=== PATIENT | male | born 1990 | race Caucasian/White ===

== ENCOUNTER 2016-03-31 22:51 | Emergency (ER) | payer OTHER ==
[2016-03-31] MEDS ORDERED: RX INFO: IV CONTRAST WAS GIVEN 1 EACH MISC MISCELLANE PRN (23:04)
[2016-03-31] MEDS ORDERED: SODIUM CHLORIDE 0.9% 1,000 ML IV STA (23:04)
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
[2016-03-31 23:47] LABS: Basophils % (A) 0 %; CH 31.2; Eosinophils # (A) 0.1 k/uL (0-0.7); Eosinophils % (A) 1 %; HCT 45.7 % (39.0-53.0); HDW 2.79; HGB 15.6 gm/dL (13.0-17.5); Luc % (Auto) 1; Lymphocytes % (A) 20 %; MCH 29.9 pg (25.0-35.0); MCHC 34.3 g/dL (31.0-37.0); MCV 87.2 fL (80.0-100.0); Mean Platelet Volume 7.7; Monocytes # (A) 0.6 k/uL (0-1.0); Monocytes % (A) 6 %; Neutrophils # (A) 7.4 k/uL (1.3-7.7); Neutrophils % (A) 73 %; RBC 5.24 m/uL (4.30-5.90); RDW 12.9 % (11.5-15.5); WBC 10.2 k/uL (3.8-10.6); WBC (Perox) 9.95
[2016-03-31 23:58] LABS: ALT 46 U/L (21-72); AST 25 U/L (17-59); Alkaline Phosphatase 66 U/L (38-126); Anion Gap 15 mmol/L; Blood Urea Nitrogen 13 mg/dL (9-20); Calcium 9.8 mg/dL (8.4-10.2); Carbon Dioxide 23 mmol/L (22-30); Chloride 102 mmol/L (98-107); Glucose 289 mg/dL (74-99); Non-African American GFR(MDRD) >60 (>60 ml/min/1.73 sqM); Potassium 4.1 mmol/L (3.5-5.1); Sodium 140 mmol/L (137-145); Total Bilirubin 0.9 mg/dL (0.2-1.3); Total Protein 7.6 g/dL (6.3-8.2)
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
--- NOTE | 2016-04-01 00:46 | XR ---
EXAMINATION TYPE: XR ankle complete LT DATE OF EXAM: 04/01/2016 12:21 AM COMPARISON: NONE HISTORY: Ankle pain TECHNIQUE: 3 views FINDINGS: I see no fracture nor dislocation. Joint spaces are normal. Soft tissues appear normal. IMPRESSION: Normal left ankle.
[2016-04-01 01:00] VITALS: RESP 16
[2016-04-01 01:08] VITALS: BP 138/69; PULSE 78; TEMP 97.9
== END 2016-04-01 01:09 | disposition home or self-care (01) ==
LOC: EC 22:51
DX: S93.402A Sprain of unspecified ligament of left ankle, initial encounter (principal); S46.912A Strain of unspecified muscle, fascia and tendon at shoulder and upper arm level, left arm, initial encounter; S06.0X0A Concussion without loss of consciousness, initial encounter; E11.9 Type 2 diabetes mellitus without complications; K76.0 Fatty (change of) liver, not elsewhere classified; F17.200 Nicotine dependence, unspecified, uncomplicated; V89.2XXA Person injured in unspecified motor-vehicle accident, traffic, initial encounter; Z79.84 Long term (current) use of oral hypoglycemic drugs
CPT/HCPCS: 99284; 96360; 36415; 80053; 85025; 73030; 73610; 72125; 70450; 71260; 74177; Q9967

== ENCOUNTER 2016-07-29 17:13 | Emergency (ER) | payer OTHER ==
[2016-07-29] MEDS ORDERED: LORazepam 1 MG TAB PO STA (17:53)
[2016-07-29] MEDS ORDERED: MECLIZINE 12.5 MG TAB PO STA (17:53)
--- NOTE | 2016-07-29 17:59 | ED ---
General Adult HPI - General Chief complaint: Dizziness Stated complaint: dizziness, hard time walking and sitting Time Seen by Provider: 07/29/16 17:33 Source: patient, family, RN notes reviewed, old records reviewed Mode of arrival: wheelchair Limitations: no limitations - History of Present Illness Initial comments: Chief complaint history of present illness a 26-year-old male here with symptoms of benign positional vertigo. It started approximately 90 minutes ago. She has had a runny nose and ALLERGY type symptoms for 2 weeks. No fever. No injuries. Turning his head left and right increases dizziness but stops after while walking causes him to be dizzy she does not fall and has no deficits neurologically. - Related Data Home Medications Medication Instructions Recorded Confirmed Albuterol Inhaler [Ventolin Hfa 2 puff INHALATION RT-Q6H PRN 07/20/14 07/29/16 Inhaler] Calcium Carbonate [Tums] 500 mg PO QID PRN 09/07/15 07/29/16 glipiZIDE [Glucotrol] 5 mg PO AC-BID 09/07/15 07/29/16 metFORMIN HCL [Glucophage] 1,000 mg PO AC-BID 09/07/15 07/29/16 Previous Rx's Medication Instructions Recorded Meclizine [Antivert] 25 mg PO TID #30 tab 07/29/16 Allergies Allergy/AdvReac Type Severity Reaction Status Date / Time No Known Allergies Allergy Verified 07/29/16 17:22 Review of Systems ROS Statement: Those systems with pertinent positive or pertinent negative responses have been documented in the HPI. review of systems. No headache, dizziness with head movement and walking. Mild nausea no vomiting. No change in appetite. No pain anywhere. All systems are reviewed.Past medical processing significant for asthma he does not smoke cigarettes but he smokes the electronic vaporization. Nex-[id number] diabetes mellitus, GERD, hypertension and does not take medications. He's had 5 sets of ear tubes. Family history vertigo. ALLERGIES none. ROS Other: All systems not noted in ROS Statement are negative. Past Medical History Past Medical History: Asthma, Diabetes Mellitus, GERD/Reflux, Hypertension History of Any Multi-Drug Resistant Organisms: None Reported Additional Past Surgical History / Comment(s): ear surgery 5 times Past Psychological History: Anxiety, Depression Smoking Status: Current every day smoker Past Alcohol Use History: None Reported Past Drug Use History: None Reported General Exam - General Exam Comments Initial Comments: General: The patient is awake and alert, complains of dizziness with head movement or standing up quickly. Vital signs show temperature 97.2 pulse 104 respiratory rate 20 pulse ox 90% room air blood pressure 130/83 Eye: Pupils are equal, round and reactive to light, extra-ocular movements are intact ; there is normal conjunctiva bilaterally. No signs of icterus. Ears, nose, mouth and throat: There are moist mucous membranes and no oral lesions. Neck: The neck is supple, there is no tenderness . Cardiovascular: There is a regular rate and rhythm. No murmur, rub or gallop is appreciated. Respiratory: Lungs are clear to auscultation, respirations are non-labored, breath sounds are equal. No wheezes, stridor, rales, or rhonchi. Gastrointestinal: Soft, non-distended, non-tender abdomen without masses or organomegaly noted. There is no rebound or guarding present. No CVA tenderness. Bowel sounds are unremarkable. Back: no complaint of back pain. No complaint of any rash. Musculoskeletal: Normal ROM, no tenderness, There is no pedal edema. There is no calf tenderness or swelling. Sensation intact. Pulses equal bilaterally 2+. Neurological: CN II-XII intact, There are no obvious motor or sensory deficits. Coordination appears grossly intact. Speech is normal.no focal or lateralizing findings Skin: Skin is warm and dry and no rashes or lesions are noted. Limitations: no limitations Course Vital Signs 07/29/16 17:19 Temperature 97.2 F L Pulse Rate 104 H Respiratory 20 Rate Blood Pressure 130/83 O2 Sat by Pulse 98 Oximetry Medical Decision Making - Medical Decision Making Past receiving Ativan and meclizine patient reports she's feeling better. The plan the patient be discharged home to care of family. Advised to take meclizine 25 mg 3 times daily for his dizziness, increase his fluid intake. Continue with his Claritin as needed nasal drops or sprays as needed. And follow-up with his family physician or return emergency room as needed Disposition Clinical Impression: Benign positional vertigo Disposition: HOME SELF-CARE Condition: Stable Instructions: Dizziness (ED), Vertigo (ED) Additional Instructions: Change positions slowly. Stay hydrated. Take medications as directed. Use nasal spray as needed. Prescriptions: Meclizine [Antivert] 25 mg PO TID #30 tab Referrals: Kat Butler MD [Primary Care Provider] - 1-2 days Time of Disposition: 18:26
[2016-07-29 18:42] VITALS: BP 120/74; PULSE 89; RESP 18; TEMP 98.5
== END 2016-07-29 18:40 | disposition home or self-care (01) ==
LOC: EC 17:13
DX: H81.13 Benign paroxysmal vertigo, bilateral (principal); E11.9 Type 2 diabetes mellitus without complications; F17.200 Nicotine dependence, unspecified, uncomplicated; Z79.84 Long term (current) use of oral hypoglycemic drugs
CPT/HCPCS: 99284

== ENCOUNTER 2016-11-04 09:11 | Emergency (ER) | payer OTHER ==
[2016-11-04 09:21] VITALS: RESP 18
--- NOTE | 2016-11-04 09:38 | ED ---
General Adult HPI - General Chief complaint: Extremity Injury, Lower Stated complaint: LEFT KNEE LUMP/PAIN, EAR PAIN Time Seen by Provider: 11/04/16 09:24 Source: patient, RN notes reviewed Mode of arrival: ambulatory Limitations: no limitations - History of Present Illness Initial comments: Patient 26-year-old male who presents emergency room today with multiple complaints. Patient does admit that he's had some popping and seizures bilaterally. He admits that he does have seasonal ALLERGIES. He does take Zyrtec. He denies any drainage discharge. He denies any other symptoms. Patient also admits that he has had some pain to the left knee. He states that 4 months ago he fell down some steps. He states has been locking up at times giving out on him. He denies any other complaints or associated symptoms. He states that he could no longer take the pain was not getting better so he thought he should have it checked. Patient denies any recent fever, chills, shortness of breath, chest pain, back pain, abdominal pain, nausea or vomiting, numbness or tingling, dysuria or hematuria, constipation or diarrhea, headaches or visual changes, or any other complaints. - Related Data Home Medications Medication Instructions Recorded Confirmed Albuterol Inhaler [Ventolin Hfa 2 puff INHALATION RT-Q6H PRN 07/20/14 07/29/16 Inhaler] Calcium Carbonate [Tums] 500 mg PO QID PRN 09/07/15 07/29/16 glipiZIDE [Glucotrol] 5 mg PO AC-BID 09/07/15 07/29/16 metFORMIN HCL [Glucophage] 1,000 mg PO AC-BID 09/07/15 07/29/16 Previous Rx's Medication Instructions Recorded Meclizine [Antivert] 25 mg PO TID #30 tab 07/29/16 Ibuprofen [Motrin] 600 mg PO Q6HR PRN #20 day 11/04/16 Allergies Allergy/AdvReac Type Severity Reaction Status Date / Time No Known Allergies Allergy Verified 11/04/16 09:16 Review of Systems ROS Statement: Those systems with pertinent positive or pertinent negative responses have been documented in the HPI. ROS Other: All systems not noted in ROS Statement are negative. Past Medical History Past Medical History: Asthma, Diabetes Mellitus, GERD/Reflux, Hypertension History of Any Multi-Drug Resistant Organisms: None Reported Additional Past Surgical History / Comment(s): ear surgery 5 times Past Psychological History: Anxiety, Depression Smoking Status: Current every day smoker Past Alcohol Use History: None Reported Past Drug Use History: None Reported General Exam - General Exam Comments Initial Comments: General: The patient is awake and alert, in no distress, and does not appear acutely ill. Eye: Pupils are equal, round and reactive to light, extra-ocular movements are intact. No nystagmus. There is normal conjunctiva bilaterally. No signs of icterus. Ears, nose, mouth and throat: There are moist mucous membranes and no oral lesions. TMs clear bilaterally. Neck: The neck is supple, there is no tenderness or JVD. Cardiovascular: There is a regular rate and rhythm. No murmur, rub or gallop is appreciated. Respiratory: Lungs are clear to auscultation, respirations are non-labored, breath sounds are equal. No wheezes, stridor, rales, or rhonchi. Musculoskeletal: Normal appearance of the left knee no obvious deformity. Shows good range of motion all areas. Patient does have some tenderness over the anterior and lateral aspect of the left knee. Negative valgus and varus stress. Negative Thiago's. Strength 5/5. Sensation intact. Pulses equal bilaterally 2+. Neurological: A&O x 3. CN II-XII intact, There are no obvious motor or sensory deficits. Coordination appears grossly intact. Speech is normal. Skin: Skin is warm and dry and no rashes or lesions are noted. Psychiatric: Cooperative, appropriate mood & affect, normal judgment. Limitations: no limitations Course Vital Signs 11/04/16 09:16 Temperature 97.3 F L Pulse Rate 106 H Respiratory 18 Rate Blood Pressure 153/96 O2 Sat by Pulse 99 Oximetry Medical Decision Making - Medical Decision Making Patient's x-rays negative for any acute fracture dislocation. Patient was advised to follow-up with orthopedics for further evaluation. Will be given knee immobilizer as he states that he has been giving out. Patient will also be given a prescription for crutches to use with weightbearing as tolerated Disposition Clinical Impression: Knee injury Disposition: HOME SELF-CARE Condition: Good Instructions: Knee Pain (ED) Additional Instructions: Please use knee immobilizer up and moving around with crutches with weightbearing as tolerated. Please do not sleep at the knee immobilizer on. Please follow-up with the orthopedic doctor over the next 2 days. Return for any other concerns. Prescriptions: Ibuprofen [Motrin] 600 mg PO Q6HR PRN #20 day PRN Reason: Pain Referrals: Kat Butler MD [Primary Care Provider] - 1-2 days Time of Disposition: 10:19
--- NOTE | 2016-11-04 10:07 | XR ---
EXAMINATION TYPE: XR knee complete LT DATE OF EXAM: 11/04/2016 CLINICAL HISTORY: Pain after fall injury. TECHNIQUE: Three views of the right knee are obtained. COMPARISON: None. FINDINGS: There is no acute fracture/dislocation evident in right knee. The tri-compartment joint s paces appear within normal limits. The overlying soft tissue appears unremarkable. IMPRESSION: There is no acute fracture or dislocation in the right knee.
[2016-11-04 10:47] VITALS: BP 130/80; PULSE 78; TEMP 97
== END 2016-11-04 10:46 | disposition home or self-care (01) ==
LOC: EC 09:11
DX: S89.92XD Unspecified injury of left lower leg, subsequent encounter (principal); H93.8X3 Other specified disorders of ear, bilateral; E11.9 Type 2 diabetes mellitus without complications; F17.200 Nicotine dependence, unspecified, uncomplicated; Z79.84 Long term (current) use of oral hypoglycemic drugs; Z98.890 Other specified postprocedural states; W10.9XXD Fall (on) (from) unspecified stairs and steps, subsequent encounter
CPT/HCPCS: 73562; 99283; L1830

== ENCOUNTER 2019-09-15 12:15 | Emergency (ER) | payer BC, OTHER ==
[2019-09-15 12:27] VITALS: TEMP 98.1
--- NOTE | 2019-09-15 13:03 | ED ---
General Adult HPI - General Chief complaint: Chest Pain Stated complaint: Chest pain Time Seen by Provider: 09/15/19 12:46 Source: patient, RN notes reviewed, old records reviewed Mode of arrival: ambulatory Limitations: no limitations - History of Present Illness Initial comments: 29-year-old male history of diabetes, current smoker presenting for evaluation of left-sided chest pain with pain radiating to the left arm. He has had intermittent chest pain over the past one week this morning approximately one hour prior to arrival this pain became more severe and he presented to the emergency department with concerns this could be related to his heart. He states the pain is worse with certain positions and worse with movement. He denies associated vomiting or diaphoresis. He himself has no known history of coronary artery disease. He does have a strong family history of coronary artery disease. - Related Data Home Medications Medication Instructions Recorded Confirmed Calcium Carbonate [Tums] 1,000 mg PO QID PRN 09/07/15 09/15/19 Albuterol Sulfate [Albuterol 1 - 2 puff PO RT-Q4H PRN 09/15/19 09/15/19 Sulfate Hfa] Cetirizine HCl [Zyrtec] 10 mg PO DAILY PRN 09/15/19 09/15/19 Ergocalciferol [Vitamin D2] 50,000 unit PO MO 09/15/19 09/15/19 Fenofibrate Nanocrystallized 145 mg PO HS 09/15/19 09/15/19 [Fenofibrate] Losartan [Cozaar] 25 mg PO HS 09/15/19 09/15/19 Pioglitazone [Actos] 15 mg PO PC-LUNCH 09/15/19 09/15/19 glipiZIDE [Glucotrol] 10 mg PO AC-BID 09/15/19 09/15/19 metFORMIN HCL [metFORMIN HCL ER] 750 mg PO AC-SUPPER 09/15/19 09/15/19 Allergies Allergy/AdvReac Type Severity Reaction Status Date / Time acetaminophen [From Tylenol] AdvReac Vomiting Verified 09/15/19 14:20 Review of Systems ROS Statement: Those systems with pertinent positive or pertinent negative responses have been documented in the HPI. ROS Other: All systems not noted in ROS Statement are negative. Past Medical History Past Medical History: Asthma, Diabetes Mellitus, GERD/Reflux, Hypertension History of Any Multi-Drug Resistant Organisms: None Reported Additional Past Surgical History / Comment(s): ear surgery 5 times Past Psychological History: Anxiety, Depression Smoking Status: Vaper Past Alcohol Use History: None Reported Past Drug Use History: None Reported General Exam Limitations: no limitations General appearance: alert, in no apparent distress Head exam: Present: atraumatic, normocephalic Eye exam: Present: normal appearance, PERRL ENT exam: Present: normal exam Neck exam: Present: normal inspection. Absent: tenderness, meningismus Respiratory exam: Present: normal lung sounds bilaterally. Absent: respiratory distress, wheezes Cardiovascular Exam: Present: regular rate, normal rhythm GI/Abdominal exam: Present: soft. Absent: distended, tenderness, guarding Extremities exam: Present: normal inspection, normal capillary refill. Absent: pedal edema Neurological exam: Present: alert, oriented X3, CN II-XII intact. Absent: motor sensory deficit Psychiatric exam: Present: normal affect, normal mood Skin exam: Present: warm, dry, intact. Absent: cyanosis, diaphoretic Course Vital Signs 09/15/19 09/15/19 09/15/19 12:21 13:11 13:30 Temperature 98.1 F Pulse Rate 94 83 86 Respiratory 18 18 16 Rate Blood Pressure 126/89 130/98 O2 Sat by Pulse 98 Oximetry 09/15/19 09/15/19 09/15/19 14:00 14:30 14:45 Temperature Pulse Rate 77 75 81 Respiratory 14 16 18 Rate Blood Pressure 134/93 125/90 135/87 O2 Sat by Pulse 98 98 99 Oximetry 09/15/19 09/15/19 15:00 16:04 Temperature Pulse Rate 75 61 Respiratory 18 16 Rate Blood Pressure 135/87 133/71 O2 Sat by Pulse 98 Oximetry EKG Findings - EKG Comments: EKG Findings:: EKG: Normal sinus rhythm, rate of 88, IL interval 168 QRS duration 90, QTC [address] segment elevation. Medical Decision Making - Medical Decision Making 29-year-old male presenting for evaluation chest pain. Pain was in the left upper chest worse with movement, as described is musculoskeletal. No associated features of dyspnea, no diaphoresis, no nausea. No abdominal pain. EKG is normal sinus rhythm without ischemic changes. Chest x-ray is negative for acute cardiopulmonary disease. Normal CBC, normal CMP, negative d-dimer, negative troponin. Patient's chest pain does appear to be musculoskeletal in nature. He will receive a second troponin at 3 hours, if this is negative he can be discharged home. He will return with worsening or changing symptoms, he will follow-up with his primary care physician, take Motrin for pain at home. - Lab Data Result diagrams: 09/15/19 13:33 09/15/19 13:33 Lab Results 09/15/19 09/15/19 09/15/19 Range/Units 13:33 13:33 13:33 WBC 8.7 (3.8-10.6) k/uL RBC 4.78 (4.30-5.90) m/uL Hgb 14.9 (13.0-17.5) gm/dL Hct 43.5 (39.0-53.0) % MCV 91.0 (80.0-100.0) fL MCH 31.2 (25.0-35.0) pg MCHC 34.3 (31.0-37.0) g/dL RDW 13.2 (11.5-15.5) % Plt Count 180 (150-450) k/uL Neutrophils % 58 % Lymphocytes % 33 % Monocytes % 5 % Eosinophils % 2 % Basophils % 1 % Neutrophils # 5.0 (1.3-7.7) k/uL Lymphocytes # 2.9 (1.0-4.8) k/uL Monocytes # 0.4 (0-1.0) k/uL Eosinophils # 0.2 (0-0.7) k/uL Basophils # 0.1 (0-0.2) k/uL PT 10.0 (9.0-12.0) sec INR 1.0 (<1.2) APTT 22.4 (22.0-30.0) sec D-Dimer <0.17 (<0.60) mg/L FEU Sodium 136 L (137-145) mmol/L Potassium 4.1 (3.5-5.1) mmol/L Chloride 105 (98-107) mmol/L Carbon Dioxide 24 (22-30) mmol/L Anion Gap 7 mmol/L BUN 13 (9-20) mg/dL Creatinine 0.73 (0.66-1.25) mg/dL Est GFR (CKD-EPI)AfAm >90 (>60 ml/min/1.73 sqM) Est GFR (CKD-EPI)NonAf >90 (>60 ml/min/1.73 sqM) Glucose 158 H (74-99) mg/dL Calcium 9.6 (8.4-10.2) mg/dL Magnesium 1.7 (1.6-2.3) mg/dL Total Bilirubin 0.5 (0.2-1.3) mg/dL AST 54 (17-59) U/L ALT 56 H (4-49) U/L Alkaline Phosphatase 50 (38-126) U/L Troponin I (0.000-0.034) ng/mL Total Protein 7.2 (6.3-8.2) g/dL Albumin 4.4 (3.5-5.0) g/dL Lipase 668 H (23-300) U/L 09/15/19 09/15/19 Range/Units 13:33 15:07 WBC (3.8-10.6) k/uL RBC (4.30-5.90) m/uL Hgb (13.0-17.5) gm/dL Hct (39.0-53.0) % MCV (80.0-100.0) fL MCH (25.0-35.0) pg MCHC (31.0-37.0) g/dL RDW (11.5-15.5) % Plt Count (150-450) k/uL Neutrophils % % Lymphocytes % % Monocytes % % Eosinophils % % Basophils % % Neutrophils # (1.3-7.7) k/uL Lymphocytes # (1.0-4.8) k/uL Monocytes # (0-1.0) k/uL Eosinophils # (0-0.7) k/uL Basophils # (0-0.2) k/uL PT (9.0-12.0) sec INR (<1.2) APTT (22.0-30.0) sec D-Dimer (<0.60) mg/L FEU Sodium (137-145) mmol/L Potassium (3.5-5.1) mmol/L Chloride (98-107) mmol/L Carbon Dioxide (22-30) mmol/L Anion Gap mmol/L BUN (9-20) mg/dL Creatinine (0.66-1.25) mg/dL Est GFR (CKD-EPI)AfAm (>60 ml/min/1.73 sqM) Est GFR (CKD-EPI)NonAf (>60 ml/min/1.73 sqM) Glucose (74-99) mg/dL Calcium (8.4-10.2) mg/dL Magnesium (1.6-2.3) mg/dL Total Bilirubin (0.2-1.3) mg/dL AST (17-59) U/L ALT (4-49) U/L Alkaline Phosphatase (38-126) U/L Troponin I <0.012 <0.012 (0.000-0.034) ng/mL Total Protein (6.3-8.2) g/dL Albumin (3.5-5.0) g/dL Lipase (23-300) U/L Disposition Clinical Impression: Chest pain Disposition: HOME SELF-CARE Condition: Good Instructions (If sedation given, give patient instructions): Chest Pain (ED) Is patient prescribed a controlled substance at d/c from ED?: No Referrals: Kat Butler MD [Primary Care Provider] - 1-2 days Time of Disposition: 14:57
--- NOTE | 2019-09-15 14:01 | XR ---
EXAMINATION TYPE: XR chest 2V DATE OF EXAM: 09/15/2019 COMPARISON: 11/29/2015 INDICATION: Chest pain TECHNIQUE: Frontal and lateral views of the chest are obtained. FINDINGS: The heart size is normal. The pulmonary vasculature is normal. The lungs are clear. IMPRESSION: 1. No acute pulmonary process.
[2019-09-15 14:05] LABS: Basophils # (A) 0.1 k/uL (0-0.2); Basophils % (A) 1 %; Eosinophils # (A) 0.2 k/uL (0-0.7); Eosinophils % (A) 2 %; HCT 43.5 % (39.0-53.0); HGB 14.9 gm/dL (13.0-17.5); Lymphocytes # (A) 2.9 k/uL (1.0-4.8); Lymphocytes % (A) 33 %; MCH 31.2 pg (25.0-35.0); MCHC 34.3 g/dL (31.0-37.0); Mean Platelet Volume 8.3; Monocytes # (A) 0.4 k/uL (0-1.0); Monocytes % (A) 5 %; Neutrophils % (A) 58 %; Platelet Count 180 k/uL (150-450); RBC 4.78 m/uL (4.30-5.90); RDW 13.2 % (11.5-15.5); WBC 8.7 k/uL (3.8-10.6)
[2019-09-15 14:15] LABS: ALT 56 U/L (4-49); AST 54 U/L (17-59); African American GFR (CKD) >90 (>60 ml/min/1.73 sqM); Albumin 4.4 g/dL (3.5-5.0); Alkaline Phosphatase 50 U/L (38-126); Anion Gap 7 mmol/L; Blood Urea Nitrogen 13 mg/dL (9-20); Calcium 9.6 mg/dL (8.4-10.2); Carbon Dioxide 24 mmol/L (22-30); Chloride 105 mmol/L (98-107); Glucose 158 mg/dL (74-99); Magnesium 1.7 mg/dL (1.6-2.3); Non-African American GFR(CKD) >90 (>60 ml/min/1.73 sqM); Potassium 4.1 mmol/L (3.5-5.1); Sodium 136 mmol/L (137-145); Total Bilirubin 0.5 mg/dL (0.2-1.3); Total Protein 7.2 g/dL (6.3-8.2)
[2019-09-15 14:20] LABS: D-Dimer <0.17 mg/L FEU (<0.60); Partial Thromboplastin Time 22.4 sec (22.0-30.0)
[2019-09-15 16:05] VITALS: BP 133/71; PULSE 61; RESP 16
== END 2019-09-15 16:05 | disposition home or self-care (01) ==
LOC: EC 12:15
DX: R07.9 Chest pain, unspecified (principal); J45.909 Unspecified asthma, uncomplicated; E11.9 Type 2 diabetes mellitus without complications; K21.9 Gastro-esophageal reflux disease without esophagitis; I10 Essential (primary) hypertension; Z79.899 Other long term (current) drug therapy; Z79.84 Long term (current) use of oral hypoglycemic drugs; Z88.6 Allergy status to analgesic agent; Z82.49 Family history of ischemic heart disease and other diseases of the circulatory system
CPT/HCPCS: 36415; 71046; 80053; 83690; 83735; 84484; 85025; 85379; 85610; 85730; 93005; 99285

== ENCOUNTER → 2020-10-07 | Outpatient (CLI) | payer OTHER ==
[2020-10-07 19:53] LABS: Alternaria alternata IgE 0.48 kU/L
[2020-10-07 19:54] LABS: Aspergillus fumagatus IgE 1.06 kU/L; Birch IgE <0.10 kU/L; Cladosporian herbarum IgE <0.10 kU/L
[2020-10-07 19:55] LABS: Dermato. farinae IgE 2.16 kU/L; Ragweed,Common IgE 2.21 kU/L
[2020-10-07 19:57] LABS: Dog Dander IgE 0.17 kU/L; Elm IgE 0.33 kU/L; Maple (Box Elder) IgE <0.10 kU/L
== END | disposition home or self-care (01) ==
LOC: LABWHC1 12:16
PROVIDERS: ATTEND Internal Medicine
DX: J31.0 Chronic rhinitis (principal)
CPT/HCPCS: 36415; 86003

== ENCOUNTER → 2020-10-12 | Outpatient (CLI) | payer OTHER ==
[2020-10-13 01:27] LABS: Walnut IgE (Food) <0.10 kU/L
[2020-10-13 01:28] LABS: Clam IgE <0.10 kU/L; Peanut IgE <0.10 kU/L; Scallop IgE <0.10 kU/L
[2020-10-13 12:20] LABS: Almond IgE <0.10 kU/L (<0.10); Almond IgE Class CLASS 0; Brazil Nut IgE <0.10 kU/L (<0.10); Brazil Nut IgE Class CLASS 0; Hazelnut IgE <0.10 kU/L (<0.10); Hazelnut IgE Class CLASS 0; Pecan IgE <0.10 kU/L (<0.10); Pecan IgE Class CLASS 0
[2020-10-13 12:21] LABS: Cashew IgE <0.10 kU/L (<0.10); Cashew IgE Class CLASS 0; Codfish IgE <0.10 kU/L (<0.10); Codfish IgE Class CLASS 0; Crab IgE <0.10 kU/L (<0.10); Crab IgE Class CLASS 0; Lobster IgE <0.10 kU/L (<0.10); Lobster IgE Class CLASS 0; Mussel IgE <0.10 kU/L (<0.10); Mussel IgE Class CLASS 0; Pistachio IgE Class CLASS 0; Salmon IgE <0.10 kU/L (<0.10); Salmon IgE Class CLASS 0; Shrimp IgE <0.10 kU/L (<0.10); Shrimp IgE Class CLASS 0; Tuna IgE <0.10 kU/L (<0.10); Tuna IgE Class CLASS 0
== END | disposition home or self-care (01) ==
LOC: LABWHC1 14:28
PROVIDERS: ATTEND Internal Medicine
DX: T78.1XXA Other adverse food reactions, not elsewhere classified, initial encounter (principal); T78.3XXA Angioneurotic edema, initial encounter
CPT/HCPCS: 36415; 86003

== ENCOUNTER → 2021-02-08 | Outpatient (CLI) | payer OTHER ==
--- NOTE | 2021-02-08 16:04 | XR ---
EXAMINATION TYPE: XR lumbosacral spine min 4V DATE OF EXAM: 02/08/2021 COMPARISON: None HISTORY: Back pain TECHNIQUE: 5 view lumbar spine FINDINGS: There are 5 lumbar-type vertebral bodies. The pedicles are intact. Facets are normal. No sp ondylolytic defects are evident. Vertebral body heights are preserved. Minimal posterior disc space n arrowing may be present L4-5 and L5-S1. Disc heights are otherwise preserved. IMPRESSION: 1. Minimal degenerative disc change posterior L4-5 and L5-S1.
--- NOTE | 2021-02-08 16:06 | XR ---
EXAMINATION TYPE: XR thoracic spine complete DATE OF EXAM: 02/08/2021 COMPARISON: None HISTORY: Back pain TECHNIQUE: 3 view thoracic spine FINDINGS: There are 12 thoracic type vertebral bodies. Pedicles are intact. Disc heights are preserve d. Vertebral body heights are preserved. Alignment is normal. IMPRESSION: 1. Unremarkable thoracic spine
== END | disposition home or self-care (01) ==
LOC: RADXRMAIN 14:38
PROVIDERS: ATTEND Family Medicine
DX: M51.37 Other intervertebral disc degeneration, lumbosacral region (principal)
CPT/HCPCS: 72072; 72110

== ENCOUNTER 2021-09-03 08:26 | Emergency (ER) | payer OTHER ==
[2021-09-03 08:36] VITALS: RESP 16; TEMP 98.1
[2021-09-03] MEDS ORDERED: ONDANSETRON 4 MG/2 ML VIAL IVP STA (08:57)
[2021-09-03] MEDS ORDERED: KETOROLAC 15 MG/ML 1 ML VIAL IVP STA (08:57)
[2021-09-03] MEDS ORDERED: SODIUM CHLORIDE 0.9% 500 ML 500 ML IV STA (08:57)
[2021-09-03 09:05] LABS: Basophils # (A) 0.1 k/uL (0-0.2); Basophils % (A) 1 %; Eosinophils # (A) 0.2 k/uL (0-0.7); Eosinophils % (A) 3 %; HCT 38.4 % (39.0-53.0); HGB 13.2 gm/dL (13.0-17.5); Lymphocytes # (A) 1.8 k/uL (1.0-4.8); Lymphocytes % (A) 21 %; MCH 31.2 pg (25.0-35.0); MCHC 34.4 g/dL (31.0-37.0); MCV 90.6 fL (80.0-100.0); Monocytes # (A) 0.4 k/uL (0-1.0); Monocytes % (A) 5 %; Neutrophils # (A) 6.1 k/uL (1.3-7.7); Neutrophils % (A) 70 %; Platelet Count 155 k/uL (150-450); RBC 4.23 m/uL (4.30-5.90); RDW 13.1 % (11.5-15.5); WBC 8.7 k/uL (3.8-10.6)
[2021-09-03 09:14] LABS: ALT 42 U/L (4-49); AST 54 U/L (17-59); African American GFR (CKD) >90 (>60 ml/min/1.73 sqM); Albumin 4.2 g/dL (3.5-5.0); Alkaline Phosphatase 45 U/L (38-126); Amylase 60 U/L (30-110); Anion Gap 9 mmol/L; Blood Urea Nitrogen 12 mg/dL (9-20); Calcium 8.7 mg/dL (8.4-10.2); Carbon Dioxide 22 mmol/L (22-30); Chloride 106 mmol/L (98-107); Glucose 198 mg/dL (74-99); Lipase 134 U/L (23-300); Non-African American GFR(CKD) >90 (>60 ml/min/1.73 sqM); Potassium 4.5 mmol/L (3.5-5.1); Sodium 137 mmol/L (137-145); Total Bilirubin 0.7 mg/dL (0.2-1.3); Total Protein 7.2 g/dL (6.3-8.2)
--- NOTE | 2021-09-03 09:23 | ED ---
General Adult HPI - General Chief complaint: Abdominal Pain Stated complaint: kidney, back & abd pain Time Seen by Provider: 09/03/21 08:35 Source: patient, RN notes reviewed, old records reviewed Mode of arrival: wheelchair Limitations: no limitations - History of Present Illness Initial comments: This is a 31-year-old male who presents emergency department stating that a few days ago he was having diffuse abdominal pain. Patient states now he comes in because his bilateral lower back pain that radiates to the flanks bilaterally. Patient patient states he is nauseated and has vomited. Patient denies diarrhea. Patient states lying flat does seem to increase the pain it made it difficult to sleep last evening. Patient denies any fever chills per patient denies any dysuria hematuria urinary frequency. Patient denies any testicular pain. Patient denies any recent injury. Patient denies any heavy lifting or moving. Patient denies any numbness or weakness. - Related Data Home Medications Medication Instructions Recorded Confirmed Calcium Carbonate [Tums] 1,000 mg PO QID PRN 09/07/15 09/15/19 Albuterol Sulfate [Albuterol 1 - 2 puff PO RT-Q4H PRN 09/15/19 09/15/19 Sulfate Hfa] Cetirizine HCl [Zyrtec] 10 mg PO DAILY PRN 09/15/19 09/15/19 Ergocalciferol [Vitamin D2] 50,000 unit PO MO 09/15/19 09/15/19 Fenofibrate Nanocrystallized 145 mg PO HS 09/15/19 09/15/19 [Fenofibrate] Losartan [Cozaar] 25 mg PO HS 09/15/19 09/15/19 Pioglitazone [Actos] 15 mg PO PC-LUNCH 09/15/19 09/15/19 glipiZIDE [Glucotrol] 10 mg PO AC-BID 09/15/19 09/15/19 metFORMIN HCL [metFORMIN HCL ER] 750 mg PO AC-SUPPER 09/15/19 09/15/19 Previous Rx's Medication Instructions Recorded Ketorolac [Toradol] 10 mg PO Q6HR #15 tab 09/03/21 Allergies Allergy/AdvReac Type Severity Reaction Status Date / Time acetaminophen [From Tylenol] AdvReac Vomiting Verified 09/03/21 08:36 Review of Systems ROS Statement: Those systems with pertinent positive or pertinent negative responses have been documented in the HPI. ROS Other: All systems not noted in ROS Statement are negative. Past Medical History Past Medical History: Asthma, Diabetes Mellitus, GERD/Reflux, Hypertension History of Any Multi-Drug Resistant Organisms: None Reported Additional Past Surgical History / Comment(s): ear surgery 5 times Past Psychological History: Anxiety, Depression Smoking Status: Vaper Past Alcohol Use History: None Reported Past Drug Use History: None Reported General Exam - General Exam Comments Initial Comments: GENERAL: Patient is well-developed and well-nourished. Patient is nontoxic and well- hydrated and is in mild distress. ENT: Neck is soft and supple. No significant lymphadenopathy is noted. Oropharynx is clear. Moist mucous membranes. Neck has full range of motion without eliciting any pain. EYES: The sclera were anicteric and conjunctiva were pink and moist. Extraocular movements were intact and pupils were equal round and reactive to light. Eyelids were unremarkable. PULMONARY: Unlabored respirations. Good breath sounds bilaterally. No audible rales rhonchi or wheezing was noted. CARDIOVASCULAR: There is a regular rate and rhythm without any murmurs gallops or rubs. ABDOMEN: Soft and nontender with normal bowel sounds. SKIN: Skin is clear with no lesions or rashes and otherwise unremarkable. NEUROLOGIC: Patient is alert and oriented 3. Cranial nerves II through XII are grossly intact. Motor and sensory are also intact. Normal speech, volume and content. Symmetrical smile. Patient's perineum exam is normal straight leg test is normal MUSCULOSKELETAL: Normal extremities with adequate strength and full range of motion. No lower extremity swelling or edema. No calf tenderness. Patient has mild paraspinal muscle tenderness bilaterally LYMPHATICS: No significant lymphadenopathy is noted PSYCHIATRIC: Normal psychiatric evaluation. Limitations: no limitations Course Vital Signs 09/03/21 09/03/21 08:34 11:07 Temperature 98.1 F Pulse Rate 99 78 Respiratory 16 16 Rate Blood Pressure 124/80 120/74 O2 Sat by Pulse 99 99 Oximetry Medical Decision Making - Medical Decision Making Patient received Toradol in the emergency department felt considerably better. CT of the abdomen showed no acute abnormality. - Lab Data Result diagrams: 09/03/21 08:57 09/03/21 08:57 Lab Results 09/03/21 09/03/21 09/03/21 Range/Units 08:57 08:57 09:10 WBC 8.7 (3.8-10.6) k/uL RBC 4.23 L (4.30-5.90) m/uL Hgb 13.2 (13.0-17.5) gm/dL Hct 38.4 L (39.0-53.0) % MCV 90.6 (80.0-100.0) fL MCH 31.2 (25.0-35.0) pg MCHC 34.4 (31.0-37.0) g/dL RDW 13.1 (11.5-15.5) % Plt Count 155 (150-450) k/uL MPV 8.0 Neutrophils % 70 % Lymphocytes % 21 % Monocytes % 5 % Eosinophils % 3 % Basophils % 1 % Neutrophils # 6.1 (1.3-7.7) k/uL Lymphocytes # 1.8 (1.0-4.8) k/uL Monocytes # 0.4 (0-1.0) k/uL Eosinophils # 0.2 (0-0.7) k/uL Basophils # 0.1 (0-0.2) k/uL Sodium 137 (137-145) mmol/L Potassium 4.5 (3.5-5.1) mmol/L Chloride 106 (98-107) mmol/L Carbon Dioxide 22 (22-30) mmol/L Anion Gap 9 mmol/L BUN 12 (9-20) mg/dL Creatinine 0.65 L (0.66-1.25) mg/dL Est GFR (CKD-EPI)AfAm >90 (>60 ml/min/1.73 sqM) Est GFR (CKD-EPI)NonAf >90 (>60 ml/min/1.73 sqM) Glucose 198 H (74-99) mg/dL Calcium 8.7 (8.4-10.2) mg/dL Total Bilirubin 0.7 (0.2-1.3) mg/dL AST 54 (17-59) U/L ALT 42 (4-49) U/L Alkaline Phosphatase 45 (38-126) U/L Total Protein 7.2 (6.3-8.2) g/dL Albumin 4.2 (3.5-5.0) g/dL Amylase 60 (30-110) U/L Lipase 134 (23-300) U/L Urine Color Yellow Urine Appearance Clear (Clear) Urine pH 5.5 (5.0-8.0) Ur Specific [place] 1.023 (1.001-1.035) Urine Protein Negative (Negative) Urine Glucose (UA) Trace H (Negative) Urine Ketones Negative (Negative) Urine Blood Negative (Negative) Urine Nitrite Negative (Negative) Urine Bilirubin Negative (Negative) Urine Urobilinogen <2.0 (<2.0) mg/dL Ur Leukocyte Esterase Negative (Negative) Disposition Clinical Impression: Lower back pain, Degenerative disc disease Disposition: HOME SELF-CARE Condition: Good Instructions (If sedation given, give patient instructions): Low Back Strain (ED) Prescriptions: Ketorolac [Toradol] 10 mg PO Q6HR #15 tab Is patient prescribed a controlled substance at d/c from ED?: No Referrals: Kat Butler MD [Primary Care Provider] - 1-2 days Time of Disposition: 10:52
[2021-09-03 09:34] LABS: Appearance,Urine Clear (Clear); Bilirubin,Urine Negative (Negative); Blood,Urine Negative (Negative); Color,Urine Yellow; Glucose,Urine (UA) Trace (Negative); Ketones,Urine Negative (Negative); Leukocyte Esterase,Urine Negative (Negative); Nitrite,Urine Negative (Negative); PH, Urine 5.5 (5.0-8.0); Protein,Urine Negative (Negative); Specific Gravity,Urine 1.023 (1.001-1.035); Urobilinogen,Urine <2.0 mg/dL (<2.0)
--- NOTE | 2021-09-03 09:49 | XR ---
EXAMINATION TYPE: XR KUB DATE OF EXAM: 09/03/2021 9:14 AM INDICATION: Patient age:Male; 31 years old; Reason for study: abdominal pain; COMPARISON: None. TECHNIQUE: One radiographic view of the abdomen was obtained. FINDINGS: The bowel gas pattern is nonspecific without dilated loops of small or large bowel. There i s no evidence for organomegaly or pneumoperitoneum. The osseous structures are intact. No abnormal calcifications are present. Fecal material and gas are demonstrated throughout the colon and rectum. IMPRESSION: Nonspecific bowel gas pattern without radiographic evidence for acute process.
--- NOTE | 2021-09-03 10:38 | CT ---
EXAMINATION TYPE: CT abdomen pelvis w con CT DLP: 3215 mGycm, Automated exposure control for dose reduction was used. DATE OF EXAM: 09/03/2021 10:28 AM COMPARISON: CT abdomen pelvis most recent from 04/01/2016. CLINICAL INDICATION:Male, 31 years old with history of Back and abdominal pain; Back pain TECHNIQUE: Standard CT of the abdomen and pelvis following the administration of 100 cc of Isovue 3 00 IV contrast material. Coronal and sagittal reformats were performed. FINDINGS: LOWER CHEST: Unremarkable ABDOMEN LIVER: Diffusely hypoattenuating parenchyma. GALLBLADDER AND BILE DUCTS: Unremarkable. PANCREAS: Unremarkable. SPLEEN: Enlarged for size measuring up to 17.6 cm. ADRENAL GLANDS: Unremarkable. KIDNEYS AND URETERS: No evidence of hydronephrosis or renal calculus. The ureters are unremarkable. PELVIS BLADDER: Unremarkable REPRODUCTIVE: Unremarkable. ABDOMEN & PELVIS STOMACH AND BOWEL: No evidence of bowel obstruction. Appendix is normal. PERITONEUM: No evidence of pneumoperitoneum or free fluid. VASCULATURE: No evidence of aortic aneurysm. MUSCULOSKELETAL: No acute osseous abnormalities. This bulging with osteophyte L4-L5 with mild spinal canal stenosis. The neural foramen are patent throughout the spine. LYMPH NODES: No gross evidence for lymphadenopathy. SOFT TISSUE/ABDOMINAL WALL: Unremarkable IMPRESSION: 1. No evidence for acute intra-abdominal process. 2. Mild multilevel disc degeneration changes of the spine most pronounced at L4-L5 with disc osteophy te complex with at least mild spinal canal stenosis. 3. Splenomegaly 4. Hepatic steatosis.
[2021-09-03 11:07] VITALS: BP 120/74; PULSE 78
== END 2021-09-03 11:07 | disposition home or self-care (01) ==
LOC: EC 08:26
DX: M51.36 Other intervertebral disc degeneration, lumbar region (principal); J45.909 Unspecified asthma, uncomplicated; E11.9 Type 2 diabetes mellitus without complications; K21.9 Gastro-esophageal reflux disease without esophagitis; I10 Essential (primary) hypertension; Z79.83 Long term (current) use of bisphosphonates; F17.209 Nicotine dependence, unspecified, with unspecified nicotine-induced disorders; Z88.8 Allergy status to other drugs, medicaments and biological substances
CPT/HCPCS: 36415; 80053; 82150; 83690; 85025; 81003; 74018; 74177; 99284; 96374; 96375; J2405; J1885; Q9967; 96376

== ENCOUNTER 2022-09-10 00:41 | Emergency (ER) | payer OTHER ==
[2022-09-10 01:08] VITALS: BP 119/79; PULSE 59; RESP 18; TEMP 98.2
--- NOTE | 2022-09-10 03:21 | XR ---
EXAM: XR Right Foot Complete, 3 or More Views CLINICAL HISTORY: ITS.REASON XR Reason: right foot pain TECHNIQUE: Frontal, lateral and oblique views of the right foot. COMPARISON: No relevant prior studies available. FINDINGS: Bones/joints: Comminuted fracture of the distal one half of the first proximal phalanx with intra-articular extension. Small calcaneal heel spur. Soft tissues: Mild enthesopathy at the insertion of the Achilles tendon. No radiopaque foreign body. IMPRESSION: Comminuted fracture of the distal one half of the first proximal phalanx with intra-articular extension.
[2022-09-10] MEDS ORDERED: IBUPROFEN 800 MG TAB PO STA (03:29)
--- NOTE | 2022-09-10 03:49 | ED ---
General Adult HPI - General Chief complaint: Extremity Injury, Lower Stated complaint: Broken RT Foot Time Seen by Provider: 09/10/22 02:57 Source: patient, RN notes reviewed, old records reviewed Mode of arrival: ambulatory Limitations: no limitations - History of Present Illness Initial comments: Patient is a 32-year-old male who presents here to department with right big toe pain after kicking his car approximately 12 hours ago. Toe began turning purple which is why presents for evaluation. Thinks he broke it. No other obvious injuries. Is not on blood thinners. No loss of consciousness or hitting of his head .Has been ambulating on it. Presents for further evaluation. States pain is primarily in the right big toe but does radiate into the middle of the foot. - Related Data Home Medications Medication Instructions Recorded Confirmed Calcium Carbonate [Tums] 1,000 mg PO QID PRN 09/07/15 09/15/19 Albuterol Sulfate [Albuterol 1 - 2 puff PO RT-Q4H PRN 09/15/19 09/15/19 Sulfate Hfa] Cetirizine HCl [Zyrtec] 10 mg PO DAILY PRN 09/15/19 09/15/19 Ergocalciferol [Vitamin D2] 50,000 unit PO MO 09/15/19 09/15/19 Fenofibrate Nanocrystallized 145 mg PO HS 09/15/19 09/15/19 [Fenofibrate] Losartan [Cozaar] 25 mg PO HS 09/15/19 09/15/19 Pioglitazone [Actos] 15 mg PO PC-LUNCH 09/15/19 09/15/19 glipiZIDE [Glucotrol] 10 mg PO AC-BID 09/15/19 09/15/19 metFORMIN HCL [metFORMIN HCL ER] 750 mg PO AC-SUPPER 09/15/19 09/15/19 Previous Rx's Medication Instructions Recorded Ketorolac [Toradol] 10 mg PO Q6HR #15 tab 09/03/21 methocarbamoL [Robaxin-750] 750 mg PO QID PRN 5 Days #20 tab 09/10/22 Allergies Allergy/AdvReac Type Severity Reaction Status Date / Time acetaminophen [From Tylenol] AdvReac Vomiting Verified 09/03/21 08:36 Review of Systems ROS Statement: Those systems with pertinent positive or pertinent negative responses have been documented in the HPI. Review of Systems: CONST: Denies fever EYES: Denies blurry vision ENT: Denies nasal congestion C/V: Denies Chest pain RESP: Denies shortness of breath GI: Denies abdominal pain : Denies dysuria SKIN: Denies rash. MSK: Endorses right big toe pain NEURO: Denies headache ROS Other: All systems not noted in ROS Statement are negative. Past Medical History Past Medical History: Asthma, Diabetes Mellitus, GERD/Reflux, Hypertension History of Any Multi-Drug Resistant Organisms: None Reported Additional Past Surgical History / Comment(s): ear surgery 5 times Past Psychological History: Anxiety, Depression Smoking Status: Vaper Past Alcohol Use History: None Reported Past Drug Use History: None Reported General Exam - General Exam Comments Initial Comments: General: Appears in mild acute distress. HEAD: Normal with no signs of head trauma. EYES: EOMI. ENT: Hearing grossly intact. RESPIRATORY: No respiratory distress. C/V: Regular rate and rhythm. ABD: Abdomen is nondistended. EXT: Trace palpation of the right big toe with reduced range of motion secondary to pain primarily in the proximal phalanx. Tenderness radiates into the metatarsal. No other obvious deformities. No ankle tenderness. SKIN: Bruising of the right big toe proximal phalanx. NEURO: Alert and oriented. Limitations: no limitations Course Vital Signs 09/10/22 01:05 Temperature 98.2 F Pulse Rate 59 L Respiratory 18 Rate Blood Pressure 119/79 O2 Sat by Pulse 97 Oximetry Procedures - Orthopedic Splinting/Casting Injury #1 Side: right Lower Extremity Injury Location: toe Lower Extremity Immobilizer: posterior splint Other Orthopedic Equipment: crutches Additional Comments: Neurovascularly intact following splinting Medical Decision Making - Medical Decision Making Was pt. sent in by a medical professional or institution (, PA, OWNER SPA DIRECTOR, urgent care, hospital, or assisted...) When possible be specific @ -No Did you speak to anyone other than the patient for history (EMS, parent, family, police, friend...)? What history was obtained from this source @ -No Did you review nursing and triage notes (agree or disagree)? Why? @ -I reviewed and agree with nursing and triage notes Were old charts reviewed (outside hosp., previous admission, EMS record, old EKG, old radiological studies, urgent care reports/EKG's, assisted records)? Report findings @ -No old charts were reviewed Differential Diagnosis (chest pain, altered mental status, abdominal pain women, abdominal pain men, vaginal bleeding, weakness, fever, dyspnea, syncope, headache, dizziness, GI bleed, back pain, seizure, CVA, palpatations, mental health, musculoskeletal)? @ -Differential Musculoskeletal Muscular strain, contusion, ligament sprain, fracture, arthritis, septic arthritis, bursitis, cellulitis, muscle spasm, nerve compression, DVT, arterial occlusion, herpes zoster, electrolyte abnormality, tumor.... This is not meant to be in all inclusive list EKG interpreted by me (3pts min.). @ -None done X-rays interpreted by me (1pt min.). @ -Right foot x-ray reveals a right first proximal phalanx comminuted fracture CT interpreted by me (1pt min.). @ -None done U/S interpreted by me (1pt. min.). @ -None done What testing was considered but not performed or refused? (CT, X-rays, U/S, labs)? Why? @ -None What meds were considered but not given or refused? Why? @ -I offered [place] for analgesic control which is declined. He did accept Motrin. Did you discuss the management of the patient with other professionals (professionals i.e. , PA, OWNER SPA DIRECTOR, lab, RT, psych nurse, social services designee, aerospace physiological technician, teacher, zoology technical officer, case manager specialist)? Give summary @ -No Was smoking cessation discussed for >3mins.? @ -No Was critical care preformed (if so, how long)? @ -No Were there social determinants of health that impacted care today? How? (Homelessness, low income, unemployed, alcoholism, drug addiction, transportation, low edu. Level, literacy, decrease access to med. care, nursing home, rehab)? @ -No Was there de-escalation of care discussed even if they declined (Discuss DNR or withdrawal of care, Hospice)? DNR status @ -No What co-morbidities impacted this encounter? (DM, HTN, Smoking, COPD, CAD, Cancer, CVA, ARF, Chemo, Hep., AIDS, mental health diagnosis, sleep apnea, morbid obesity)? @ -None Was patient admitted / discharged? Hospital course, mention meds given and route, prescriptions, significant lab abnormalities, going to OR and other pertinent info. @ -Based on the patient's presentation and physical exam, concern for right toe fracture. Was given Motrin. X-ray shows a right first proximal phalanx comminuted fracture. Patient will be placed in a posterior mold splint which was completed by myself as well as given crutches. Instructed to remain nonweightbearing. Instructed follow up with orthopedic surgery. He was in agreement this plan. Vital signs within acceptable limits. Neurovascular intact following the procedure. I instructed the patient to follow up with their PCP in the next 1-3 days. I explained that the patient should return to the emergency department if they experience any worsening symptoms. Provided follow-up information with orthopedic surgery. Strict return precautions were discussed with the patient. The patient expressed understanding of these instructions. I answered all questions that the patient had. The patient was discharged home in good condition with their prescriptions and follow up information. Undiagnosed new problem with uncertain prognosis? @ -No Drug Therapy requiring intensive monitoring for toxicity (Heparin, Nitro, Insulin, Cardizem)? @ -No Were any procedures done? @ -No Diagnosis/symptom? @ -Comminuted fracture of the right proximal first phalanx Acute, or Chronic, or Acute on Chronic? @ -Acute Uncomplicated (without systemic symptoms) or Complicated (systemic symptoms)? @ -Complicated Side effects of treatment? @ -No Exacerbation, Progression, or Severe Exacerbation? @ -No Poses a threat to life or bodily function? How? (Chest pain, [place], MA, pneumonia, PE, COPD, DKA, ARF, appy, cholecystitis, CVA, Diverticulitis, Homicidal, Suicidal, threat to staff... and all critical care pts) @ -No Disposition Clinical Impression: Toe fracture Disposition: HOME SELF-CARE Condition: Fair Instructions (If sedation given, give patient instructions): Toe Fracture (ED) Prescriptions: methocarbamoL [Robaxin-750] 750 mg PO QID PRN 5 Days #20 tab PRN Reason: Pain Is patient prescribed a controlled substance at d/c from ED?: No Referrals: Kat Butler MD [Primary Care Provider] - 1-2 days Johann Weiner MD [STAFF PHYSICIAN] - 1-2 days Time of Disposition: 03:55
== END 2022-09-10 06:17 | disposition home or self-care (01) ==
LOC: EC 00:41
DX: S92.401A Displaced unspecified fracture of right great toe, initial encounter for closed fracture (principal); E11.9 Type 2 diabetes mellitus without complications; I10 Essential (primary) hypertension; K21.9 Gastro-esophageal reflux disease without esophagitis; J45.909 Unspecified asthma, uncomplicated; F41.9 Anxiety disorder, unspecified; F32.A Depression, unspecified; F17.290 Nicotine dependence, other tobacco product, uncomplicated; Z88.6 Allergy status to analgesic agent; Z79.84 Long term (current) use of oral hypoglycemic drugs; Z79.899 Other long term (current) drug therapy; W22.8XXA Striking against or struck by other objects, initial encounter
CPT/HCPCS: 99283

== ENCOUNTER → 2024-06-04 | Outpatient (CLI) | payer OTHER ==
--- NOTE | 2024-06-04 15:13 | XR ---
EXAMINATION TYPE: XR lumbar spine 2 or 3V DATE OF EXAM: 06/04/2024 2:20 PM COMPARISON: 02/08/2021. CLINICAL INDICATION: Male, 34 years old with history of M54.50, pain TECHNIQUE: XR lumbar spine 2 or 3V - Frontal, lateral and coned in L5-S1 lateral views of the spine. FINDINGS: No evidence of any acute osseous pathology. No evidence of loss of vertebral body height i s seen. There is normal alignment of the lumbar vertebral bodies. Scattered disc space narrowing. Mul tilevel marginal osteophyte formation throughout the visualized spine. There is facet joint arthropat hy throughout the spine. Scattered at least mild neural foraminal stenosis. IMPRESSION: 1. No acute fracture. 2. Mild multilevel disc degeneration. [facility], , 06/04/2024 3:10 PM
== END | disposition home or self-care (01) ==
LOC: RADXRMAIN 13:57
PROVIDERS: ATTEND Family Medicine
DX: M51.360 Other intervertebral disc degeneration, lumbar region with discogenic back pain only (principal); M47.816 Spondylosis without myelopathy or radiculopathy, lumbar region; M99.73 Connective tissue and disc stenosis of intervertebral foramina of lumbar region
CPT/HCPCS: 72100